=== PATIENT | female | born 1995 | race Native Hawaiian/Other Pacific Islander ===

== ENCOUNTER 2016-12-31 22:51 | Emergency (ER) | payer BC ==
[~2016-12-31] VITALS: Ht 157.5 cm; Wt 45.0 kg
[2016-12-31] MEDS ORDERED: SODIUM CHLORIDE 0.9% FLUSH 5 ML FLUSH IVF PRN (23:00)
[2016-12-31] MEDS ORDERED: SODIUM CHLOR 0.9% 1000 ML INJ 1,000 ML IV ONE ×2 (23:00)
[2016-12-31] MEDS ORDERED: ONDANSETRON HCL 4 MG/2 ML VIAL IV PUSH ONE (23:00)
--- NOTE | 2016-12-31 23:10 | PD ---
HPI Chief Complaint: Alcohol/Drug Intoxication Time Seen by Provider: 22:59 Travel History International Travel<30 days: No Contact w/Intl Traveler<30days: No History of Present Illness HPI Patient is a 21-year-old female who was brought to the emergency room by EMS after she was found intoxicated at a bar. As per patient's friends, patient is here for spring break, reports that she may have had too much to drink tonight. Patient currently intoxicated and unable to provide history of present illness this time. [facility] Past Medical History Medical History: Unable to Obtain Social History Alcohol Use: Yes Tobacco Use: No Allergies-Medications (Allergen,Severity, Reaction): Coded Allergies: UNOBTAINABLE (Unverified , 12/31/16) Review of Systems ROS Limitations: Intoxication (unable to obtain secondary to intoxication) Physical Exam Narrative GENERAL: Patient in no acute distress SKIN: Warm and dry. HEAD: Atraumatic. Normocephalic. EYES: Pupils equal and round. No scleral icterus. No injection or drainage. ENT: No nasal bleeding or discharge. Mucous membranes pink and moist. NECK: Trachea midline. No JVD. CARDIOVASCULAR: Regular rate and rhythm. No murmur appreciated. RESPIRATORY: No accessory muscle use. Clear to auscultation. Breath sounds equal bilaterally. GASTROINTESTINAL: Abdomen soft, non-tender, nondistended. Hepatic and splenic margins not palpable. MUSCULOSKELETAL: No obvious deformities. No clubbing. No cyanosis. No edema. NEUROLOGICAL: Patient intoxicated Data Data Last Documented VS Vital Signs Date Time Temp Pulse Resp B/P Pulse Ox O2 Delivery O2 Flow Rate FiO2 01/01/17 00:09 96 12 111/69 100 Room Air 12/31/16 23:21 96.3 Orders Beta Hcg (Quant/Titer) (12/31/16 22:59) Complete Blood Count With Diff (12/31/16 22:59) Comprehensive Metabolic Panel (12/31/16 22:59) Iv Access Insert/Monitor (12/31/16 22:59) Ecg Monitoring (12/31/16 22:59) Sodium Chloride 0.9% Flush (Ns Flush) (12/31/16 23:00) Alcohol (Ethanol) (12/31/16 22:59) Drug Screen, Random Urine (12/31/16 22:59) Sodium Chlor 0.9% 1000 Ml Inj (Ns 1000 M (3/8/17 23:00) Sodium Chlor 0.9% 1000 Ml Inj (Ns 1000 M (12/31/16 23:00) Ondansetron Inj (Zofran Inj) (12/31/16 23:00) Sodium Chlor 0.9% 1000 Ml Inj (Ns 1000 M (01/01/17 00:15) Labs Laboratory Tests Test 12/31/16 23:10 White Blood Count 4.5 TH/MM3 Red Blood Count 3.95 MIL/MM3 Hemoglobin 10.5 GM/DL Hematocrit 32.0 % Mean Corpuscular Volume 80.9 FL Mean Corpuscular Hemoglobin 26.5 PG Mean Corpuscular Hemoglobin 32.8 % Concent Red Cell Distribution Width 13.6 % Platelet Count 228 TH/MM3 Mean Platelet Volume 8.5 FL Neutrophils (%) (Auto) 43.6 % Lymphocytes (%) (Auto) 48.4 % Monocytes (%) (Auto) 6.4 % Eosinophils (%) (Auto) 0.8 % Basophils (%) (Auto) 0.8 % Neutrophils # (Auto) 2.0 TH/MM3 Lymphocytes # (Auto) 2.2 TH/MM3 Monocytes # (Auto) 0.3 TH/MM3 Eosinophils # (Auto) 0.0 TH/MM3 Basophils # (Auto) 0.0 TH/MM3 CBC Comment DIFF FINAL Differential Comment Sodium Level 148 MEQ/L Potassium Level 3.5 MEQ/L Chloride Level 115 MEQ/L Carbon Dioxide Level 23.9 MEQ/L Anion Gap 9 MEQ/L Blood Urea Nitrogen 6 MG/DL Creatinine 0.57 MG/DL Estimat Glomerular Filtration 134 ML/MIN Rate Random Glucose 115 MG/DL Calcium Level 7.1 MG/DL Protein Corrected Calcium 7.5 MG/DL Total Bilirubin 0.1 MG/DL Aspartate Amino Transf 17 U/L (AST/SGOT) Alanine Aminotransferase 20 U/L (ALT/SGPT) Alkaline Phosphatase 64 U/L Total Protein 6.3 GM/DL Albumin 3.4 GM/DL Human Chorionic Gonadotropin, LESS THAN 1 Quant MIU/ML Ethyl Alcohol Level 233 MG/DL MDM Medical Decision Making Medical Screen Exam Complete: Yes Emergency Medical Condition: Yes Interpretation(s) Vital Signs Date Time Temp Pulse Resp B/P Pulse Ox O2 Delivery O2 Flow Rate FiO2 01/01/17 00:09 96 12 111/69 100 Room Air 12/31/16 23:23 73 12 100 Room Air 12/31/16 23:21 96.3 73 12 100/58 100 Differential Diagnosis Acute alcohol intoxication, substance abuse Narrative Course Patient is a 21-year-old female who presents to emergency room after she had too much to drink at a bar today. EMS were called as patient was unresponsive, reports that her friends were carrying her out of the bar today. Patient intoxicated at bedside, plan to obtain lab work as well as tox screen. Will give patient IV fluids as well as antiemetics. Patient now awake and alert 3, patient with no complaints at this time, patient drinking fluids. Patient's friends are at bedside, patient educated on alcoholism CBC & BMP Diagram 12/31/16 23:10 Diagnosis Primary Impression: Alcohol intoxication Qualified Code: F10.120 - Alcohol intoxication, uncomplicated Additional Impression: Anemia Qualified Code: D64.9 - Anemia, unspecified type Patient Instructions: General Instructions Additional Instructions: Please follow-up with your primary care doctor Return to the emergency room as needed Please stop drinking alcohol excessively Disposition: 01 DISCHARGE HOME Condition: Stable Kira Dunham DO Dec 31, 2016 23:10
[2016-12-31 23:21] VITALS: BP 100/58; PULSE 73; RESP 12; TEMP 96.3; O2SAT 100
[2016-12-31 23:33] LABS: BASOPHIL % 0.8 % (0.0-2.0); EOSINOPHIL % 0.8 % (0.0-4.0); HEMO FLAGS DIFF FINAL; LYMPH % 48.4 % (9.0-44.0); LYMPHOCYTE # 2.2 TH/MM3 (1.0-4.8); MEAN CELL VOLUME 80.9 FL (80.0-100.0); MEAN CORPUSCULAR HEMOGLOBIN 26.5 PG (27.0-34.0); MEAN CORPUSCULAR HGB CONC 32.8 % (32.0-36.0); MONO % 6.4 % (0.0-8.0); NEUT % 43.6 % (16.0-70.0); PLATELET COUNT 228 TH/MM3 (150-450); RED BLOOD COUNT 3.95 MIL/MM3 (4.00-5.30); RED CELL DISTRIBUTION WIDTH 13.6 % (11.6-17.2); WHITE BLOOD COUNT 4.5 TH/MM3 (4.0-11.0)
[2017-01-01 00:09] VITALS: BP 111/69; PULSE 96; RESP 12; O2SAT 100
[2017-01-01 00:12] LABS: ALKALINE PHOSPHATASE 64 U/L (45-117); ALT (GPT) 20 U/L (10-53); ANION GAP 9 MEQ/L (5-15); AST (GOT) 17 U/L (15-37); BETA HCG QUANT LESS THAN 1 MIU/ML (0-5); BICARBONATE 23.9 MEQ/L (21.0-32.0); BLOOD UREA NITROGEN 6 MG/DL (7-18); CALCIUM-PROTEIN CORRECTED 7.5 MG/DL (8.5-10.1); CHLORIDE 115 MEQ/L (98-107); GLOMERULAR FILTRATION RATE 134 ML/MIN (>89); POTASSIUM 3.5 MEQ/L (3.5-5.1); SODIUM (NA) 148 MEQ/L (136-145); TOTAL BILIRUBIN ADULT 0.1 MG/DL (0.2-1.0)
[2017-01-01] MEDS ORDERED: SODIUM CHLOR 0.9% 1000 ML INJ 1,000 ML IV ONE (00:15)
[2017-01-01 01:13] LABS: AMPHETAMINE, URINE NEG (NEG); BARBITURATES, URINE NEG (NEG); COCAINE, URINE NEG (NEG)
[2017-01-01 01:45] VITALS: BP 102/68; PULSE 92; RESP 12; O2SAT 99
[2017-01-01 03:31] VITALS: BP 102/55; PULSE 94; RESP 12; O2SAT 99
== END 2017-01-01 04:30 | disposition home or self-care (01) ==
LOC: NEPA 22:51
DX: F10.129 Alcohol abuse with intoxication, unspecified (principal); D64.9 Anemia, unspecified
CPT/HCPCS: 80053; 80307; 84702; 85025; 96374; 99284; J2405; J7030